=== PATIENT | male | born 1950 | race Caucasian/White ===

== ENCOUNTER 2022-11-20 13:55 | Inpatient (IN) ==
[2022-11-20] MEDS ORDERED: ALBUT/IPRATROP 3MG/0.5MG NEB 3 ML VIAL NEB STA (14:08)
[2022-11-20] MEDS ORDERED: CEFEPIME 2,000 MG/20 ML VIAL IV STA (14:08)
--- NOTE | 2022-11-20 14:15 | Emergency Department Note ---
Impression & Plan Sepsis, Acute cholecystitis, Leukocytosis, Immunocompromised, Diverticulitis, COVID-19, Thrombocytopenia ED Provider Note NAME: RUSSELL LUZ AGE: 72 SEX: M : 1950 ARRIVES VIA: Ambulance INFORMANT: [Patient][ems, nursing] ED PROVIDER(S): [Kirk Murray MD] CHIEF COMPLAINT: Short of breath HISTORY OF PRESENT ILLNESS: The patient is a 72-year-old male with a history of renal transplant. He is on immunosuppressant medication. The patient is here visiting from [place]. [facility]. As per EMS, the patient seemed off today and short of breath. He was described as in respiratory distress when seen by EMS. His O2 saturation was in the low 80s. He was placed on nasal cannula O2 supplementation. Upon arrival in the ER, he feels improved. The patient denies fever or chills, he denies cough. He states he did test positive for COVID recently but he cannot really narrow down an exact time he was tested. Patient cannot say exactly how long he has been feeling short of breath but definitely was worse today. Of note, the patient is a poor historian, the is not currently at the bedside. Majority of the history was obtained from the nursing staff and EMS. PMHx/PSHx: See Below SOCIAL HISTORY: See Below. PHYSICAL EXAM: GENERAL: Patient is in no acute distress. HEENT: No acute trauma, normocephalic atraumatic, mucous membranes moist, no nasal congestion. NECK: No stridor, no adenopathy, no meningismus, trachea is midline. LUNGS: Wheezing bilaterally, diminished breath sounds bilaterally, no obvious respiratory distress. HEART: 3/6 systolic murmur. Regular rate and rhythm. ABDOMEN: Soft, nontender, bowel sounds positive, no peritonitis. EXTREMITIES: No cyanosis or edema, full range of motion of all the joints without pain or difficulty, no signs for acute trauma. NEUROLOGIC: Moves all extremities, poor historian, awake. SKIN: No rash, no jaundice, no diaphoresis. DIFFERENTIAL DIAGNOSIS: Bacteremia or sepsis, pneumonia, viral illness, bronchospasm, CHF, cardiac ischemia, electrolyte imbalance, anemia, among others. EMERGENCY DEPARTMENT COURSE/PROCEDURES: Prior/Outside records reviewed: EMS notes. ECG per my interpretation: Indication was shortness of breath. The ECG shows a ventricular pacemaker with a rate of 102. There is no concerning ST e levation, there are no PVCs. The QTc is 495. No old ECGs available for comparison. Continuous Cardiac Monitoring per my interpretation: An order was placed for continuous cardiac monitoring. The monitor shows a rate of 102 with ventricular pacing. Critical Care Note: I have personally spent 46 minutes of critical care time in the direct management of this patient. This includes bedside care, interpretation of diagnostic studies, and testing, discussion with consultants, patient, and family members, and other required patient management activities. This 46 minutes is in excess of all separately billable procedures. MEDICAL DECISION MAKING: There is a mild leukocytosis, this would be consistent with infection. There is a normal hemoglobin. Platelet count was low at 90. We have no old laboratory values to use for comparison. INR was slightly elevated at 1.2. There was some elevation to the creatinine at 1.95. We have no old creatinine values to use for comparison. Potassium was slightly high at 5.7. Lactic acid level was elevated consistent with potential sepsis. Magnesium is low at 1.5. There were some liver enzyme elevations noted. BNP was elevated consistent with potential fluid overload. Chest film per my review shows some mild lung congestion but no focal pneumonia or pneumothorax. Procalcitonin level was elevated consistent with a bacterial infection. Urinalysis did not show findings of infection. Respiratory bio fire was positive for COVID-19. ECG showed a ventricular pacemaker. There was a slight elevation to the cardiac troponin. This troponin elevation could be secondary to cardiac injury or potentially just mismatch from his illness. Abdominal and pelvis CT shows acute cholecystitis and possible acute diverticulitis. There was some inflammation to the renal transplant. The patient received IV cefepime as empiric antibiotic coverage. He was given IV Tylenol for his fever. He was given a DuoNeb for his wheezing. He received IV magnesium and 1 L of IV saline. I was very cautious not to give too much fluid as I was concerned for fluid overload and CHF. I spoke with the patient about his findings, he is in need of a hospital stay. I did speak with case management as well as the on-call hospitalist. I spoke with the on-call surgeon, Dr. Sheth. The patient appears septic with acute cholecystitis and possibly acute diverticulitis. He is COVID-19 positive and immunocompromised. Admission is warranted. No acute surgical intervention this evening. IV antibiotic therapy and continued resuscitation is first and foremost. DISPOSITION: Patient's presentation and findings warrant a hospital stay. Past Med/Surg History Medical History Cirrhosis Surgical History History of permanent cardiac pacemaker placement Renal transplant recipient Social History Smoking Status: Light tobacco smoker Tobacco Type: Smokeless Tobacco (Dip or Chew) Second Hand Exposure: No; Do You Dip or Chew Tobacco: Yes; Tobacco Cessation Education Requested by Patient: No Hx Alcohol Use: Yes Alcohol type: beer Hx Substance Use: No Preferred Language: Albanian Label Printer Required: No Beliefs That Will Affect Care: None Current Living Situation: Spouse Current Living Situation Comment: Home with in [place] Other Information That Helps Us Care for You: No Feels Safe at Home: Yes Safety Concerns: Feels Safe At This Time Assistive Devices: Glasses Allergies Allergies Allergy/AdvReac Type Severity Reaction Status Date / Time No Known Allergies Allergy Unverified 11/20/22 19:17 Home Meds Home Medications Medication Instructions Recorded Confirmed aspirin 81 mg tablet,delayed 81 mg PO DAILY 11/20/22 11/20/22 release calcitriol 0.25 mcg capsule 0.25 mcg PO DIRECTED 11/20/22 11/20/22 dapagliflozin propanediol 10 mg 10 mg PO DAILY 11/20/22 11/20/22 tablet (Farxiga) losartan 50 mg tablet 50 mg PO DAILY 11/20/22 11/20/22 metoprolol succinate 25 mg 25 mg PO HS 11/20/22 11/20/22 tablet,extended release 24 hr multivitamin 1 tab PO DAILY 11/20/22 11/20/22 mycophenolate mofetil 250 mg 250 mg PO BID 11/20/22 11/20/22 capsule (CellCept) prednisone 5 mg tablet 5 mg PO DAILY 11/20/22 11/20/22 simvastatin 20 mg tablet 20 mg PO DAILY 11/20/22 11/20/22 tacrolimus 1 mg capsule, 1 mg PO BID 11/20/22 11/20/22 immediate-release tamsulosin 0.4 mg capsule 0.4 mg PO DAILY 11/20/22 11/20/22 Results & Data (ED) Vital Signs Vital Signs - 24 hr 11/20/22 14:13 11/20/22 13:43 11/20/22 14:08 Temperature 38.9 C H Temperature Source Oral Pulse Rate 103 H 102 H Pulse Rate from SpO2 Sensor Respiratory Rate 29 H Respiratory Effort / Characteristics Spontaneous Respiratory Depth Normal Respiratory Pattern Regular Blood Pressure 145/78 H Blood Pressure Mean 100 Pulse Oximetry 93 93 Oxygen Delivery Method Room Air Room Air Oxygen Flow Rate 0 Sepsis Recent Fever Within 48 Hours Yes Sepsis New/Unexplained Change in Mental Status N/A Sepsis Action Taken by Nursing Physician Notified 11/20/22 14:04 11/20/22 14:05 11/20/22 14:10 Temperature Temperature Source Pulse Rate 103 H 102 H Pulse Rate from SpO2 Sensor 100 H 104 H Respiratory Rate 39 H 34 H Respiratory Effort / Characteristics Respiratory Depth Respiratory Pattern Blood Pressure 145/78 H Blood Pressure Mean 111 Pulse Oximetry 92 92 Oxygen Delivery Method Room Air Oxygen Flow Rate Sepsis Recent Fever Within 48 Hours Sepsis New/Unexplained Change in Mental Status Sepsis Action Taken by Nursing 11/20/22 14:20 11/20/22 14:30 11/20/22 14:40 Temperature Temperature Source Pulse Rate 100 H 102 H 103 H Pulse Rate from SpO2 Sensor 98 H 99 H 100 H Respiratory Rate 23 37 H 14 Respiratory Effort / Characteristics Respiratory Depth Respiratory Pattern Blood Pressure Blood Pressure Mean Pulse Oximetry 91 99 89 L Oxygen Delivery Method Room Air Oxygen Flow Rate Sepsis Recent Fever Within 48 Hours Sepsis New/Unexplained Change in Mental Status Sepsis Action Taken by Nursing 11/20/22 14:50 11/20/22 15:52 11/20/22 14:59 Temperature 38.6 C H Temperature Source Oral Pulse Rate 103 H 97 H Pulse Rate from SpO2 Sensor 100 H 99 H Respiratory Rate 15 28 H Respiratory Effort / Characteristics Respiratory Depth Respiratory Pattern Blood Pressure Blood Pressure Mean Pulse Oximetry 95 96 Oxygen Delivery Method Nasal Cannula Oxygen Flow Rate 3 Sepsis Recent Fever Within 48 Hours Sepsis New/Unexplained Change in Mental Status Sepsis Action Taken by Nursing 11/20/22 14:59 11/20/22 15:00 11/20/22 15:00 Temperature Temperature Source Pulse Rate 106 H Pulse Rate from SpO2 Sensor 96 H Respiratory Rate 31 H Respiratory Effort / Characteristics Respiratory Depth Respiratory Pattern Blood Pressure 139/68 129/75 Blood Pressure Mean 108 101 Pulse Oximetry 96 Oxygen Delivery Method Oxygen Flow Rate Sepsis Recent Fever Within 48 Hours Sepsis New/Unexplained Change in Mental Status Sepsis Action Taken by Nursing 11/20/22 15:10 11/20/22 15:20 11/20/22 15:30 Temperature Temperature Source Pulse Rate 107 H 107 H Pulse Rate from SpO2 Sensor 107 H Respiratory Rate 38 H 28 H Respiratory Effort / Characteristics Respiratory Depth Respiratory Pattern Blood Pressure 135/72 Blood Pressure Mean 107 Pulse Oximetry 95 Oxygen Delivery Method Oxygen Flow Rate Sepsis Recent Fever Within 48 Hours Sepsis New/Unexplained Change in Mental Status Sepsis Action Taken by Nursing 11/20/22 15:30 11/20/22 15:40 11/20/22 15:45 Temperature Temperature Source Pulse Rate 108 H 106 H 97 H Pulse Rate from SpO2 Sensor 111 H Respiratory Rate 36 H 36 H 34 H Respiratory Effort / Characteristics Respiratory Depth Respiratory Pattern Blood Pressure Blood Pressure Mean Pulse Oximetry 94 Oxygen Delivery Method Oxygen Flow Rate Sepsis Recent Fever Within 48 Hours Sepsis New/Unexplained Change in Mental Status Sepsis Action Taken by Nursing 11/20/22 15:45 11/20/22 15:50 11/20/22 16:00 Temperature Temperature Source Pulse Rate 97 H 94 H Pulse Rate from SpO2 Sensor 103 H 96 H Respiratory Rate 36 H 39 H Respiratory Effort / Characteristics Respiratory Depth Respiratory Pattern Blood Pressure 127/59 L Blood Pressure Mean 71 Pulse Oximetry 96 95 Oxygen Delivery Method Nasal Cannula Oxygen Flow Rate 3 Sepsis Recent Fever Within 48 Hours Sepsis New/Unexplained Change in Mental Status Sepsis Action Taken by Nursing 11/20/22 16:31 11/20/22 16:22 11/20/22 16:30 Temperature 38.1 C H Temperature Source Oral Pulse Rate Pulse Rate from SpO2 Sensor 99 H Respiratory Rate Respiratory Effort / Characteristics Respiratory Depth Respiratory Pattern Blood Pressure 103/64 Blood Pressure Mean 74 Pulse Oximetry 97 Oxygen Delivery Method Oxygen Flow Rate Sepsis Recent Fever Within 48 Hours Sepsis New/Unexplained Change in Mental Status Sepsis Action Taken by Nursing 11/20/22 16:30 11/20/22 16:40 11/20/22 16:45 Temperature Temperature Source Pulse Rate 96 H 95 H Pulse Rate from SpO2 Sensor 100 H 97 H Respiratory Rate 31 H 38 H Respiratory Effort / Characteristics Respiratory Depth Respiratory Pattern Blood Pressure 121/69 Blood Pressure Mean 88 Pulse Oximetry 96 96 Oxygen Delivery Method Oxygen Flow Rate Sepsis Recent Fever Within 48 Hours Sepsis New/Unexplained Change in Mental Status Sepsis Action Taken by Nursing 11/20/22 16:45 11/20/22 16:50 11/20/22 17:00 Temperature Temperature Source Pulse Rate 104 H Pulse Rate from SpO2 Sensor 96 H 99 H Respiratory Rate Respiratory Effort / Characteristics Respiratory Depth Respiratory Pattern Blood Pressure 123/72 Blood Pressure Mean 84 Pulse Oximetry 96 96 Oxygen Delivery Method Oxygen Flow Rate Sepsis Recent Fever Within 48 Hours Sepsis New/Unexplained Change in Mental Status Sepsis Action Taken by Nursing 11/20/22 17:00 11/20/22 17:10 11/20/22 17:20 Temperature Temperature Source Pulse Rate 95 H 100 H 97 H Pulse Rate from SpO2 Sensor 98 H 95 H 101 H Respiratory Rate 18 17 26 H Respiratory Effort / Characteristics Respiratory Depth Respiratory Pattern Blood Pressure Blood Pressure Mean Pulse Oximetry 96 96 96 Oxygen Delivery Method Nasal Cannula Oxygen Flow Rate 3 Sepsis Recent Fever Within 48 Hours Sepsis New/Unexplained Change in Mental Status Sepsis Action Taken by [facility] Medications Current Medication List: was personally reviewed by me Laboratory Data Attestation: I reviewed the patient's lab results. 11/20/22 14:51 11/20/22 14:51 Lab Results 11/20/22 11/20/22 11/20/22 Range/Units 14:09 14:51 14:51 WBC 12.70 H (4.8-10.8) K/ul RBC 5.66 (4.70-6.10) M/uL Hgb 17.5 (14.0-18.0) g/dl Hct 52.1 H (42.0-52.0) % MCV 92.0 (80.0-100.0) fL MCH 30.9 (25.0-34.0) pg MCHC 33.6 (32.0-36.0) g/dL RDW Std Deviation 46.2 (36.4-46.3) fL RDW Coeff of Noelle 13.7 (11.5-14.5) % Plt Count 90 L (130-400) K/uL MPV 10.3 (9.4-12.4) fL Immature Gran % (Auto) 0.9 % Neut % (Auto) 88.5 % Lymph % (Auto) 6.2 % [place] % (Auto) 4.2 % Eos % (Auto) 0.0 % Baso % (Auto) 0.2 % Neut # (Auto) 11.24 H (1.40-6.50) K/uL Lymph # (Auto) 0.79 L (1.2-3.4) K/uL [place] # (Auto) 0.53 (0.11-0.59) K/uL Eos # (Auto) 0.00 (0-0.50) K/uL Baso # (Auto) 0.03 (0-0.2) K/uL Immature Gran # (Auto) 0.11 (0.01-0.20) K/uL Platelet Estimate Decreased L (Normal) PT (9.0-12.0) Seconds INR (0.9-1.1) APTT (21.0-31.0) Seconds PTT Ratio Sodium 137 (136-145) mmol/L Potassium 5.7 H (3.5-5.1) mmol/L Chloride 108 H (98-107) mmol/L Carbon Dioxide 21 (21-32) mmol/L Anion Gap 8 (3-11) BUN 37 H (6-23) mg/dl Creatinine 1.95 H (0.6-1.4) mg/dl Est Cr Clr Drug Dosing 41.0 ml/min Est GFR ( Amer) 38.7 ml/min Est GFR (Non-Af Amer) 33.4 ml/min BUN/Creatinine Ratio 19.0 (10-20) Glucose 108 H (70-99(Fasting)) mg/dl Lactate (0.4-2.0) mmol/L Calcium 10.0 (8.6-10.3) mg/dl Magnesium 1.5 L (1.7-2.4) mg/dl Total Bilirubin 2.1 H (0.2-1.0) mg/dl Direct Bilirubin 1.0 H (0-0.2) mg/dl AST 59 H (13-39) U/L ALT 95 H (7-52) U/L Alkaline Phosphatase 81 (34-104) U/L Troponin I High Sens 76.3 H* (0-20) pg/ml B-Natriuretic Peptide (0-100) pg/ml Total Protein 7.3 (6.0-8.3) gm/dl Albumin 4.2 (3.4-5.0) gm/dl Procalcitonin (0-0.5) ng/ml Urine Color Urine Appearance (Clear) Urine pH (4.5-7.5) Ur Specific [place] (1.000-1.030) Urine Protein (Negative) Urine Glucose (UA) (Negative) Urine Ketones (Negative) Urine Blood (Negative) Urine Nitrite (Negative) Urine Bilirubin (Negative) Urine Urobilinogen (Negative) Ur Leukocyte Esterase (Negative) Urine WBC (Auto) (0-5) /hpf Urine RBC (Auto) (0-4) /hpf U Hyaline Cast (Auto) (0-5) /lpf U Epithel Cells (Auto) (0-5) /lpf Urine Bacteria (Auto) (Negative) Urine Yeast Nasal Screen MRSA (PCR) (Negative) Adenovirus (PCR) Not Detected (NotDetected) Anaplasma Smear B. pertussis DNA (PCR) Not Detected (NotDetected) B.parapertussis DNA PCR Not Detected (NotDetected) Lyme Disease IgG Ab (Negative) Lyme Disease IgM Ab (Negative) C. pneumoniae DNA (PCR) Not Detected (NotDetected) Coronavirus OC43 (PCR) Not Detected (NotDetected) Coronavirus HKU1 (PCR) Not Detected (NotDetected) Coronavirus 229E (PCR) Not Detected (NotDetected) SARS-CoV-2 (PCR) DETECTED A* (NotDetected) Coronavirus NL63 (PCR) Not Detected (NotDetected) Monoscreen (Negative) Human Metapneumovir PCR Not Detected (NotDetected) Influenza Type A (PCR) Not Detected (NotDetected) Influenza Type B (PCR) Not Detected (NotDetected) M. pneumoniae (PCR) Not Detected (NotDetected) Parainfluenza 1 (PCR) Not Detected (NotDetected) Parainfluenza 2 (PCR) Not Detected (NotDetected) Parainfluenza 3 (PCR) Not Detected (NotDetected) Parainfluenza 4 (PCR) Not Detected (NotDetected) RSV (PCR) Not Detected (NotDetected) Entero/Rhino (PCR) Not Detected (NotDetected) 11/20/22 11/20/22 11/20/22 Range/Units 14:51 14:51 14:51 WBC (4.8-10.8) K/ul RBC (4.70-6.10) M/uL Hgb (14.0-18.0) g/dl Hct (42.0-52.0) % MCV (80.0-100.0) fL MCH (25.0-34.0) pg MCHC (32.0-36.0) g/dL RDW Std Deviation (36.4-46.3) fL RDW Coeff of Noelle (11.5-14.5) % Plt Count (130-400) K/uL MPV (9.4-12.4) fL Immature Gran % (Auto) % Neut % (Auto) % Lymph % (Auto) % [place] % (Auto) % Eos % (Auto) % Baso % (Auto) % Neut # (Auto) (1.40-6.50) K/uL Lymph # (Auto) (1.2-3.4) K/uL [place] # (Auto) (0.11-0.59) K/uL Eos # (Auto) (0-0.50) K/uL Baso # (Auto) (0-0.2) K/uL Immature Gran # (Auto) (0.01-0.20) K/uL Platelet Estimate (Normal) PT (9.0-12.0) Seconds INR (0.9-1.1) APTT (21.0-31.0) Seconds PTT Ratio Sodium (136-145) mmol/L Potassium (3.5-5.1) mmol/L Chloride (98-107) mmol/L Carbon Dioxide (21-32) mmol/L Anion Gap (3-11) BUN (6-23) mg/dl Creatinine (0.6-1.4) mg/dl Est Cr Clr Drug Dosing ml/min Est GFR ( Amer) ml/min Est GFR (Non-Af Amer) ml/min BUN/Creatinine Ratio (10-20) Glucose (70-99(Fasting)) mg/dl Lactate 2.1 H* (0.4-2.0) mmol/L Calcium (8.6-10.3) mg/dl Magnesium (1.7-2.4) mg/dl Total Bilirubin (0.2-1.0) mg/dl Direct Bilirubin (0-0.2) mg/dl AST (13-39) U/L ALT (7-52) U/L Alkaline Phosphatase (34-104) U/L Troponin I High Sens (0-20) pg/ml B-Natriuretic Peptide 508 H (0-100) pg/ml Total Protein (6.0-8.3) gm/dl Albumin (3.4-5.0) gm/dl Procalcitonin 14.34 H (0-0.5) ng/ml Urine Color Urine Appearance (Clear) Urine pH (4.5-7.5) Ur Specific [place] (1.000-1.030) Urine Protein (Negative) Urine Glucose (UA) (Negative) Urine Ketones (Negative) Urine Blood (Negative) Urine Nitrite (Negative) Urine Bilirubin (Negative) Urine Urobilinogen (Negative) Ur Leukocyte Esterase (Negative) Urine WBC (Auto) (0-5) /hpf Urine RBC (Auto) (0-4) /hpf U Hyaline Cast (Auto) (0-5) /lpf U Epithel Cells (Auto) (0-5) /lpf Urine Bacteria (Auto) (Negative) Urine Yeast Nasal Screen MRSA (PCR) (Negative) Adenovirus (PCR) (NotDetected) Anaplasma Smear B. pertussis DNA (PCR) (NotDetected) B.parapertussis DNA PCR (NotDetected) Lyme Disease IgG Ab (Negative) Lyme Disease IgM Ab (Negative) C. pneumoniae DNA (PCR) (NotDetected) Coronavirus OC43 (PCR) (NotDetected) Coronavirus HKU1 (PCR) (NotDetected) Coronavirus 229E (PCR) (NotDetected) SARS-CoV-2 (PCR) (NotDetected) Coronavirus NL63 (PCR) (NotDetected) Monoscreen (Negative) Human Metapneumovir PCR (NotDetected) Influenza Type A (PCR) (NotDetected) Influenza Type B (PCR) (NotDetected) M. pneumoniae (PCR) (NotDetected) Parainfluenza 1 (PCR) (NotDetected) Parainfluenza 2 (PCR) (NotDetected) Parainfluenza 3 (PCR) (NotDetected) Parainfluenza 4 (PCR) (NotDetected) RSV (PCR) (NotDetected) Entero/Rhino (PCR) (NotDetected) 11/20/22 11/20/22 11/20/22 Range/Units 14:51 16:09 17:05 WBC (4.8-10.8) K/ul RBC (4.70-6.10) M/uL Hgb (14.0-18.0) g/dl Hct (42.0-52.0) % MCV (80.0-100.0) fL MCH (25.0-34.0) pg MCHC (32.0-36.0) g/dL RDW Std Deviation (36.4-46.3) fL RDW Coeff of Noelle (11.5-14.5) % Plt Count (130-400) K/uL MPV (9.4-12.4) fL Immature Gran % (Auto) % Neut % (Auto) % Lymph % (Auto) % [place] % (Auto) % Eos % (Auto) % Baso % (Auto) % Neut # (Auto) (1.40-6.50) K/uL Lymph # (Auto) (1.2-3.4) K/uL [place] # (Auto) (0.11-0.59) K/uL Eos # (Auto) (0-0.50) K/uL Baso # (Auto) (0-0.2) K/uL Immature Gran # (Auto) (0.01-0.20) K/uL Platelet Estimate (Normal) PT 12.8 H (9.0-12.0) Seconds INR 1.2 H (0.9-1.1) APTT 32.2 H (21.0-31.0) Seconds PTT Ratio 1.1 Sodium (136-145) mmol/L Potassium (3.5-5.1) mmol/L Chloride (98-107) mmol/L Carbon Dioxide (21-32) mmol/L Anion Gap (3-11) BUN (6-23) mg/dl Creatinine (0.6-1.4) mg/dl Est Cr Clr Drug Dosing ml/min Est GFR ( Amer) ml/min Est GFR (Non-Af Amer) ml/min BUN/Creatinine Ratio (10-20) Glucose (70-99(Fasting)) mg/dl Lactate (0.4-2.0) mmol/L Calcium (8.6-10.3) mg/dl Magnesium (1.7-2.4) mg/dl Total Bilirubin (0.2-1.0) mg/dl Direct Bilirubin (0-0.2) mg/dl AST (13-39) U/L ALT (7-52) U/L Alkaline Phosphatase (34-104) U/L Troponin I High Sens (0-20) pg/ml B-Natriuretic Peptide (0-100) pg/ml Total Protein (6.0-8.3) gm/dl Albumin (3.4-5.0) gm/dl Procalcitonin (0-0.5) ng/ml Urine Color [place] Urine Appearance Clear (Clear) Urine pH 5.0 (4.5-7.5) Ur Specific [place] 1.028 (1.000-1.030) Urine Protein 3+ H (Negative) Urine Glucose (UA) 3+ H (Negative) Urine Ketones Trace H (Negative) Urine Blood 1+ H (Negative) Urine Nitrite Positive A (Negative) Urine Bilirubin 1+ H (Negative) Urine Urobilinogen Negative (Negative) Ur Leukocyte Esterase Negative (Negative) Urine WBC (Auto) 1-5 (0-5) /hpf Urine RBC (Auto) 0-4 (0-4) /hpf U Hyaline Cast (Auto) 1-5 (0-5) /lpf U Epithel Cells (Auto) 10-20 H (0-5) /lpf Urine Bacteria (Auto) Negative (Negative) Urine Yeast Not Reportable Nasal Screen MRSA (PCR) Negative (Negative) Adenovirus (PCR) (NotDetected) Anaplasma Smear B. pertussis DNA (PCR) (NotDetected) B.parapertussis DNA PCR (NotDetected) Lyme Disease IgG Ab (Negative) Lyme Disease IgM Ab (Negative) C. pneumoniae DNA (PCR) (NotDetected) Coronavirus OC43 (PCR) (NotDetected) Coronavirus HKU1 (PCR) (NotDetected) Coronavirus 229E (PCR) (NotDetected) SARS-CoV-2 (PCR) (NotDetected) Coronavirus NL63 (PCR) (NotDetected) Monoscreen (Negative) Human Metapneumovir PCR (NotDetected) Influenza Type A (PCR) (NotDetected) Influenza Type B (PCR) (NotDetected) M. pneumoniae (PCR) (NotDetected) Parainfluenza 1 (PCR) (NotDetected) Parainfluenza 2 (PCR) (NotDetected) Parainfluenza 3 (PCR) (NotDetected) Parainfluenza 4 (PCR) (NotDetected) RSV (PCR) (NotDetected) Entero/Rhino (PCR) (NotDetected) 11/20/22 11/20/22 11/20/22 Range/Units 17:10 17:10 17:10 WBC (4.8-10.8) K/ul RBC (4.70-6.10) M/uL Hgb (14.0-18.0) g/dl Hct (42.0-52.0) % MCV (80.0-100.0) fL MCH (25.0-34.0) pg MCHC (32.0-36.0) g/dL RDW Std Deviation (36.4-46.3) fL RDW Coeff of Noelle (11.5-14.5) % Plt Count (130-400) K/uL MPV (9.4-12.4) fL Immature Gran % (Auto) % Neut % (Auto) % Lymph % (Auto) % [place] % (Auto) % Eos % (Auto) % Baso % (Auto) % Neut # (Auto) (1.40-6.50) K/uL Lymph # (Auto) (1.2-3.4) K/uL [place] # (Auto) (0.11-0.59) K/uL Eos # (Auto) (0-0.50) K/uL Baso # (Auto) (0-0.2) K/uL Immature Gran # (Auto) (0.01-0.20) K/uL Platelet Estimate (Normal) PT (9.0-12.0) Seconds INR (0.9-1.1) APTT (21.0-31.0) Seconds PTT Ratio Sodium (136-145) mmol/L Potassium (3.5-5.1) mmol/L Chloride (98-107) mmol/L Carbon Dioxide (21-32) mmol/L Anion Gap (3-11) BUN (6-23) mg/dl Creatinine (0.6-1.4) mg/dl Est Cr Clr Drug Dosing ml/min Est GFR ( Amer) ml/min Est GFR (Non-Af Amer) ml/min BUN/Creatinine Ratio (10-20) Glucose (70-99(Fasting)) mg/dl Lactate 1.9 (0.4-2.0) mmol/L Calcium (8.6-10.3) mg/dl Magnesium (1.7-2.4) mg/dl Total Bilirubin (0.2-1.0) mg/dl Direct Bilirubin (0-0.2) mg/dl AST (13-39) U/L ALT (7-52) U/L Alkaline Phosphatase (34-104) U/L Troponin I High Sens 80.8 H* (0-20) pg/ml B-Natriuretic Peptide (0-100) pg/ml Total Protein (6.0-8.3) gm/dl Albumin (3.4-5.0) gm/dl Procalcitonin (0-0.5) ng/ml Urine Color Urine Appearance (Clear) Urine pH (4.5-7.5) Ur Specific [place] (1.000-1.030) Urine Protein (Negative) Urine Glucose (UA) (Negative) Urine Ketones (Negative) Urine Blood (Negative) Urine Nitrite (Negative) Urine Bilirubin (Negative) Urine Urobilinogen (Negative) Ur Leukocyte Esterase (Negative) Urine WBC (Auto) (0-5) /hpf Urine RBC (Auto) (0-4) /hpf U Hyaline Cast (Auto) (0-5) /lpf U Epithel Cells (Auto) (0-5) /lpf Urine Bacteria (Auto) (Negative) Urine Yeast Nasal Screen MRSA (PCR) (Negative) Adenovirus (PCR) (NotDetected) Anaplasma Smear See Comment B. pertussis DNA (PCR) (NotDetected) B.parapertussis DNA PCR (NotDetected) Lyme Disease IgG Ab (Negative) Lyme Disease IgM Ab (Negative) C. pneumoniae DNA (PCR) (NotDetected) Coronavirus OC43 (PCR) (NotDetected) Coronavirus HKU1 (PCR) (NotDetected) Coronavirus 229E (PCR) (NotDetected) SARS-CoV-2 (PCR) (NotDetected) Coronavirus NL63 (PCR) (NotDetected) Monoscreen (Negative) Human Metapneumovir PCR (NotDetected) Influenza Type A (PCR) (NotDetected) Influenza Type B (PCR) (NotDetected) M. pneumoniae (PCR) (NotDetected) Parainfluenza 1 (PCR) (NotDetected) Parainfluenza 2 (PCR) (NotDetected) Parainfluenza 3 (PCR) (NotDetected) Parainfluenza 4 (PCR) (NotDetected) RSV (PCR) (NotDetected) Entero/Rhino (PCR) (NotDetected) 11/20/22 11/20/22 Range/Units 17:10 17:10 WBC (4.8-10.8) K/ul RBC (4.70-6.10) M/uL Hgb (14.0-18.0) g/dl Hct (42.0-52.0) % MCV (80.0-100.0) fL MCH (25.0-34.0) pg MCHC (32.0-36.0) g/dL RDW Std Deviation (36.4-46.3) fL RDW Coeff of Noelle (11.5-14.5) % Plt Count (130-400) K/uL MPV (9.4-12.4) fL Immature Gran % (Auto) % Neut % (Auto) % Lymph % (Auto) % [place] % (Auto) % Eos % (Auto) % Baso % (Auto) % Neut # (Auto) (1.40-6.50) K/uL Lymph # (Auto) (1.2-3.4) K/uL [place] # (Auto) (0.11-0.59) K/uL Eos # (Auto) (0-0.50) K/uL Baso # (Auto) (0-0.2) K/uL Immature Gran # (Auto) (0.01-0.20) K/uL Platelet Estimate (Normal) PT (9.0-12.0) Seconds INR (0.9-1.1) APTT (21.0-31.0) Seconds PTT Ratio Sodium (136-145) mmol/L Potassium (3.5-5.1) mmol/L Chloride (98-107) mmol/L Carbon Dioxide (21-32) mmol/L Anion Gap (3-11) BUN (6-23) mg/dl Creatinine (0.6-1.4) mg/dl Est Cr Clr Drug Dosing ml/min Est GFR ( Amer) ml/min Est GFR (Non-Af Amer) ml/min BUN/Creatinine Ratio (10-20) Glucose (70-99(Fasting)) mg/dl Lactate (0.4-2.0) mmol/L Calcium (8.6-10.3) mg/dl Magnesium (1.7-2.4) mg/dl Total Bilirubin (0.2-1.0) mg/dl Direct Bilirubin (0-0.2) mg/dl AST (13-39) U/L ALT (7-52) U/L Alkaline Phosphatase (34-104) U/L Troponin I High Sens (0-20) pg/ml B-Natriuretic Peptide (0-100) pg/ml Total Protein (6.0-8.3) gm/dl Albumin (3.4-5.0) gm/dl Procalcitonin (0-0.5) ng/ml Urine Color Urine Appearance (Clear) Urine pH (4.5-7.5) Ur Specific [place] (1.000-1.030) Urine Protein (Negative) Urine Glucose (UA) (Negative) Urine Ketones (Negative) Urine Blood (Negative) Urine Nitrite (Negative) Urine Bilirubin (Negative) Urine Urobilinogen (Negative) Ur Leukocyte Esterase (Negative) Urine WBC (Auto) (0-5) /hpf Urine RBC (Auto) (0-4) /hpf U Hyaline Cast (Auto) (0-5) /lpf U Epithel Cells (Auto) (0-5) /lpf Urine Bacteria (Auto) (Negative) Urine Yeast Nasal Screen MRSA (PCR) (Negative) Adenovirus (PCR) (NotDetected) Anaplasma Smear B. pertussis DNA (PCR) (NotDetected) B.parapertussis DNA PCR (NotDetected) Lyme Disease IgG Ab Negative (Negative) Lyme Disease IgM Ab Negative (Negative) C. pneumoniae DNA (PCR) (NotDetected) Coronavirus OC43 (PCR) (NotDetected) Coronavirus HKU1 (PCR) (NotDetected) Coronavirus 229E (PCR) (NotDetected) SARS-CoV-2 (PCR) (NotDetected) Coronavirus NL63 (PCR) (NotDetected) Monoscreen Negative (Negative) Human Metapneumovir PCR (NotDetected) Influenza Type A (PCR) (NotDetected) Influenza Type B (PCR) (NotDetected) M. pneumoniae (PCR) (NotDetected) Parainfluenza 1 (PCR) (NotDetected) Parainfluenza 2 (PCR) (NotDetected) Parainfluenza 3 (PCR) (NotDetected) Parainfluenza 4 (PCR) (NotDetected) RSV (PCR) (NotDetected) Entero/Rhino (PCR) (NotDetected) Administered Medications Vancomycin HCl 2,000 mg/ (Sodium Chloride) 540 mls @ 200 mls/hr IV NOW ONE Stop: 11/20/22 22:11 Last Admin: 11/20/22 20:35 Dose: 200 mls/hr Documented By: WINSTON Magnesium Oxide (Magnesium Oxide 400 Mg Tab) 400 mg PO QAM ABDULKADIR Stop: 12/20/22 19:29 Last Admin: 11/20/22 20:35 Dose: 400 mg Documented By: GH Metoprolol Succinate (Metoprolol Succ 25mg Ext Rel Tab) 25 mg PO HS [facility] Stop: 12/20/22 20:59 Last Admin: 11/20/22 20:35 Dose: 25 mg Documented By: GH Mycophenolate Mofetil (Mycophenolate Mofetil 250 Mg Cap) 250 mg PO BID ABDULKADIR Stop: 12/20/22 20:59 Last Admin: 11/20/22 20:35 Dose: 250 mg Documented By: GH Tacrolimus (Tacrolimus 1 Mg Cap) 1 mg PO BID ABDULKADIR Stop: 12/20/22 20:59 Last Admin: 11/20/22 20:35 Dose: 1 mg Documented By: GH Discontinued Medications Albuterol (Albut/Ipratrop 3mg/0.5mg Neb 3 Ml Vial) 3 ml NEB NOW STA; Protocol Stop: 11/20/22 14:09 Last Admin: 11/20/22 14:22 Dose: 3 ml Documented By: ROXIE Cefepime HCl (Maxipime) 2,000 mg in 20 mls @ 5 mls/min IV NOW STA; Protocol Stop: 11/20/22 14:11 Last Admin: 11/20/22 15:20 Dose: 5 mls/min Documented By: ROXIE Acetaminophen (Ofirmev) 1,000 mg in 100 mls @ 400 mls/hr IV NOW STA Stop: 11/20/22 15:00 Last Infusion: 11/20/22 15:50 Dose: 0 mls/hr Documented By: Admin: 11/20/22 14:57 Dose: 400 mls/hr Documented By: ROXIE Sodium Chloride (Nss 1000ml) 1,000 mls @ 999 mls/hr IV .Q1H1M ONE Stop: 11/20/22 15:46 Last Infusion: 11/20/22 16:16 Dose: 0 mls/hr Documented By: Admin: 11/20/22 14:58 Dose: 999 mls/hr Documented By: ROXIE Magnesium Sulfate/Dextrose (Magnesium Sulfate / D5w) 1 gm in 100 mls @ 100 mls/hr IV NOW STA Stop: 11/20/22 16:24 Last Infusion: 11/20/22 17:20 Dose: 0 mls/hr Documented By: Admin: 11/20/22 15:49 Dose: 100 mls/hr Documented By: ROXIE Imaging Data Radiologist's Impression: Chest X-Ray 11/20/22 14:08 XR chest 1V portable HISTORY: Sepsis COMPARISON: None. FINDINGS: No pneumothorax. No pleural effusions. The cardiac silhouette is mildly enlarged. There is mild central pulmonary vascular congestion without overt edema. No new focal lung consolidations to suggest pneumonia. Small linear scarlike density seen within the left midlung zone. The left-sided dual-chamber pacemaker. IMPRESSION: Cardiomegaly and mild central pulmonary vascular congestion without overt edema. ACT 112: Negative or not required by law. Electronically signed by: Josh Maloney M.D. 11/20/2022 2:58 PM Abdomen/Pelvis CT 11/20/22 15:[address] WITHOUT CONTRAST CT DOSE: 1501.13 mGy.cm HISTORY: fever, sepsis, renal transplant TECHNIQUE: Multiaxial CT images of the abdomen and pelvis were performed without contrast. A dose lowering technique was utilized adhering to the principles of ALARA. COMPARISON STUDY: None. FINDINGS: Mild dependent changes seen at the lung bases. No pneumoperitoneum. No pneumatosis. No suspicious lytic are blastic osseous lesions. Pacemaker wires and aortic valve prosthesis are noted. There is a single mildly enlarged anterior diaphragmatic/pericardial lymph node measuring 19 x 12 mm. The right lower quadrant abdominal wall hernia containing multiple loops of small bowel in the cecum. No evidence for a bowel obstruction. Small fat-containing left inguinal hernia. Multiple small and large bowel diverticula are noted. There is minimal fat stranding adjacent to the proximal sigmoid colon with mild focal bowel wall thickening. This likely represents a mild acute diverticulitis. Normal appendix. There are few punctate calcified granulomas within the right hepatic lobe. Nodular contour to the liver consistent with cirrhosis. The spleen is enlarged measuring 15 cm in length. The adrenal glands and pancreas are unremarkable. There is thickening of the gallbladder wall with multiple punctate gallstones and mild pericholecystic inflammatory change/fluid. This is concerning for an acute cholecystitis. There are atrophic bilateral [place] kidneys containing multiple hypodense lesions. These are incompletely belle racterized on this noncontrast study but favor cysts. Dominant right renal lesion measures 6.4 cm. Advanced calcified plaque within the aorta and iliac arteries. No significant bladder wall thickening. The right lower quadrant renal transplant with mild perinephric fat stranding. There is a single punctate stone within the right lower quadrant renal transplant. No hydronephrosis. Mild periportal lymphadenopathy. This could be due to the cirrhosis or suspected acute cholecystitis. IMPRESSION: 1. Gallbladder wall thickening with pericholecystic inflammatory change/fluid and a few small gallstones. This is concerning for acute cholecystitis. Surgical consultation recommended. 2. Mild acute sigmoid diverticulitis. No perforation or abscess. 3. Mild perinephric edema surrounding the right lower quadrant renal transplant. A mild pyelonephritis would be the diagnosis of exclusion. Recommend correlation with urinalysis. 4. A single punctate stone within the right lower quadrant renal transplant. No hydronephrosis or ureteral stones. 5. Cirrhotic liver with splenomegaly. 6. Additional findings as described above. ACT 112: Negative or not required by law. Electronically signed by: Josh Maloney M.D. 11/20/2022 4:33 PM Discharge Plan Visit Data Chief Complaint: Illness ED Provider: Kirk Murray Discharge Problem: Sepsis, Acute cholecystitis, Leukocytosis, Immunocompromised, Diverticulitis, COVID-19, Thrombocytopenia Patient Disposition: Admitted As Inpatient Condition: Serious Discharge Instructions Interventions: ED Discharge Assessment Last Done: 11/20/22 18:15
[2022-11-20] MEDS ORDERED: ACETAMINOPHEN 1,000 MG/100 ML VIAL IV STA (14:46)
[2022-11-20] MEDS ORDERED: SODIUM CHLORIDE 0.9% 1000ML 1,000 ML IV ONE (14:46)
--- NOTE | 2022-11-20 14:59 | XRay Report ---
XR chest 1V portable HISTORY: Sepsis COMPARISON: None. FINDINGS: No pneumothorax. No pleural effusions. The cardiac silhouette is mildly enlarged. There is mild central pulmonary vascular congestion without overt edema. No new focal lung consolidations to s uggest pneumonia. Small linear scarlike density seen within the left midlung zone. The left-sided martinez l-chamber pacemaker. IMPRESSION: Cardiomegaly and mild central pulmonary vascular congestion without overt edema. ACT 112: Negative or not required by law. Electronically signed by: Josh Maloney M.D. 11/20/2022 2:58 PM
[2022-11-20 15:19] LABS: Albumin Level 4.2 gm/dl (3.4-5.0); Bilirubin,Total 2.1 mg/dl (0.2-1.0); Magnesium 1.5 mg/dl (1.7-2.4); Potassium 5.7 mmol/L (3.5-5.1)
[2022-11-20 15:22] LABS: INR 1.2 (0.9-1.1); Partial Thromboplastin Ratio 1.1; Partial Thromboplastin Time 32.2 Seconds (21.0-31.0); Prothrombin Time 12.8 Seconds (9.0-12.0)
[2022-11-20 15:25] LABS: Est GFR (African American) 38.7 ml/min; Est GFR (Non-African American) 33.4 ml/min; Total Protein 7.3 gm/dl (6.0-8.3)
[2022-11-20] MEDS ORDERED: MAGNESIUM SULFATE / D5W 1 GM/100 ML BAG IV STA (15:25)
[2022-11-20 15:34] LABS: Troponin I High Sensitivity 76.3 pg/ml (0-20)
[2022-11-20 15:36] LABS: Bordetella parapertussis PCR Not Detected (NotDetected); Bordetella pertussis PCR Not Detected (NotDetected); Chlamydia pneumoniae PCR Not Detected (NotDetected); Coronavirus 229E PCR Not Detected (NotDetected); Coronavirus CoV-2 (COVID19)PCR DETECTED (NotDetected); Coronavirus HKU1 PCR Not Detected (NotDetected); Coronavirus NL63 PCR Not Detected (NotDetected); Coronavirus OC43PCR Not Detected (NotDetected); Human Metapneumovirus PCR Not Detected (NotDetected); Influenza A PCR Not Detected (NotDetected); Influenza B PCR Not Detected (NotDetected); Mycoplasma pneumoniae PCR Not Detected (NotDetected); Parainfluenza Virus 1 PCR Not Detected (NotDetected); Parainfluenza Virus 2 PCR Not Detected (NotDetected); Parainfluenza Virus 3 PCR Not Detected (NotDetected); Parainfluenza Virus 4 PCR Not Detected (NotDetected); Respiratory Syncytial VirusPCR Not Detected (NotDetected); Rhinovirus/Enterovirus PCR Not Detected (NotDetected)
[2022-11-20 15:40] LABS: Basophils # (auto) 0.03 K/uL (0-0.2); Basophils % (auto) 0.2 %; Hematocrit (blood only) 52.1 % (42.0-52.0); Hemoglobin 17.5 g/dl (14.0-18.0); Immature Granulocytes # (auto) 0.11 K/uL (0.01-0.20); Immature Granulocytes % (auto) 0.9 %; Lymphocytes # (auto) 0.79 K/uL (1.2-3.4); Lymphocytes % (auto) 6.2 %; Mean Corpuscular Hemoglobin 30.9 pg (25.0-34.0); Mean Corpuscular Hgb Conc 33.6 g/dL (32.0-36.0); Mean Platelet Volume 10.3 fL (9.4-12.4); Monocytes # (auto) 0.53 K/uL (0.11-0.59); Monocytes % (auto) 4.2 %; Neutrophils # (auto) 11.24 K/uL (1.40-6.50); Neutrophils % (auto) 88.5 %; Platelet Count 90 K/uL (130-400); Platelet Estimate Decreased (Normal); RDW Coefficient of Variation 13.7 % (11.5-14.5); RDW Standard Deviation 46.2 fL (36.4-46.3); Red Blood Count 5.66 M/uL (4.70-6.10)
[2022-11-20 15:48] LABS: Adenovirus PCR Not Detected (NotDetected)
[2022-11-20 16:30] LABS: Appearance Urine Clear (Clear); Bacteria Urine Automated Negative (Negative); Blood Urine 1+ (Negative); Color Urine Orange; Glucose Urine UA 3+ (Negative); Ketones Urine Trace (Negative); Leukocyte Esterase Urine Negative (Negative); Nitrite Urine Positive (Negative); Protein Urine 3+ (Negative); RBC Urine Automated 0-4 /hpf (0-4); Specific Gravity Urine 1.028 (1.000-1.030); Urobilinogen Urine Negative (Negative)
--- NOTE | 2022-11-20 16:35 | CT Scan Report ---
ABDOMEN AND PELVIS CT WITHOUT CONTRAST CT DOSE: 1501.13 mGy.cm HISTORY: fever, sepsis, renal transplant TECHNIQUE: Multiaxial CT images of the abdomen and pelvis were performed without contrast. A dose lo wering technique was utilized adhering to the principles of ALARA. COMPARISON STUDY: None. FINDINGS: Mild dependent changes seen at the lung bases. No pneumoperitoneum. No pneumatosis. No susp icious lytic are blastic osseous lesions. Pacemaker wires and aortic valve prosthesis are noted. Ther e is a single mildly enlarged anterior diaphragmatic/pericardial lymph node measuring 19 x 12 mm. The right lower quadrant abdominal wall hernia containing multiple loops of small bowel in the cecum. No evidence for a bowel obstruction. Small fat-containing left inguinal hernia. Multiple small and larg e bowel diverticula are noted. There is minimal fat stranding adjacent to the proximal sigmoid colon with mild focal bowel wall thickening. This likely represents a mild acute diverticulitis. Normal divina endix. There are few punctate calcified granulomas within the right hepatic lobe. Nodular contour to the liver consistent with cirrhosis. The spleen is enlarged measuring 15 cm in length. The adrenal gl ands and pancreas are unremarkable. There is thickening of the gallbladder wall with multiple punctat e gallstones and mild pericholecystic inflammatory change/fluid. This is concerning for an acute chol ecystitis. There are atrophic bilateral [place] kidneys containing multiple hypodense lesions. These a re incompletely characterized on this noncontrast study but favor cysts. Dominant right renal lesion measures 6.4 cm. Advanced calcified plaque within the aorta and iliac arteries. No significant bladde r wall thickening. The right lower quadrant renal transplant with mild perinephric fat stranding. The re is a single punctate stone within the right lower quadrant renal transplant. No hydronephrosis. Mi ld periportal lymphadenopathy. This could be due to the cirrhosis or suspected acute cholecystitis. IMPRESSION: 1. Gallbladder wall thickening with pericholecystic inflammatory change/fluid and a few small gallsto josefina. This is concerning for acute cholecystitis. Surgical consultation recommended. 2. Mild acute sigmoid diverticulitis. No perforation or abscess. 3. Mild perinephric edema surrounding the right lower quadrant renal transplant. A mild pyelonephriti s would be the diagnosis of exclusion. Recommend correlation with urinalysis. 4. A single punctate stone within the right lower quadrant renal transplant. No hydronephrosis or ure teral stones. 5. Cirrhotic liver with splenomegaly. 6. Additional findings as described above. ACT 112: Negative or not required by law. Electronically signed by: Josh Maloney M.D. 11/20/2022 4:33 PM
[2022-11-20 16:40] LABS: Bilirubin Urine 1+ (Negative)
--- NOTE | 2022-11-20 17:01 | History & Physical Report ---
Date of Service November 20, 2022 Assessment & Plan (1) Sepsis: Plan: Summary: Sharif is a 72-year-old male who is a very poor historian of his medications and history limiting HPI. He is from out of state (from [place]) and seasonally stays in [place] during the summer months due to the heat in [place]. Has been staying at the [facility]. is not available in person or by phone at time of of admitting exam, reportedly coming in to help give collateral at some point. Daniel Germanisabel [phone] is patient's primary care physician from [place]. Additionally has had [facility] sent by Jakclyn Ortega and Mauri Toledo. Multiple calls made to providers office between [phone], unfortunately have not been able to reach any answering service or provider for medication and medical history reconciliation. Recommend retrying record request at opening 9 AM, of note phone initially gave in answering prompt around 450 but on subsequent calls after 5:00 disconnects with no voice prompt. He is immunosuppressed and has received a renal transplant for unclear reasons, is on prednisone/mycophenolate/tacrolimus, and has had several days of fever/chills/night sweats with unclear source. Reports he had COVID 3 weeks ago but the symptoms have improved and he has not had a cough or shortness of breath recently. Does endorse slight right upper quadrant tenderness, no worsening with food and no samir colored stools. No GI bleeding. Reports he has a little bit of left lower quadrant abdominal tenderness as well but it is "barely noticeable ". Given immunosuppression, unclear source of infection, and septic presentation will cover broadly with broad work-up while continue to obtain collateral as noted below. Sepsis Lactate 2.1, repeat ordered at time of consultation 30 cc/kg bolus deferred due to borderline lactate, and concern for underlying CHF with multiple comorbidities and cardiomegaly noted on CXR with vascular congestion Unclear source. CTA/P with gallbladder wall thickening and pericholecystic fluid suspicious for acute cholecystitis. Patient does not have abdominal pain on clinical exam. Patient has perinephric edema surrounding right lower quadrant renal transplant, mild pyelonephritis is within differential. UA is pending No urinary symptoms/dysuria Procalcitonin 14.34. No pulmonary symptoms UA with protein, ketones, 1+ blood, nitrites. No leukocyte esterase, no bacteria Blood cultures pending Continue cefepime, vancomycin Lyme, anaplasmosis labs pending given patient has been camping and [place] ? ABDIRASHID, history of renal transplant Baseline creatinine unknown Creatinine 1.95 Patient is a renal transplant patient on tacrolimus and mycophenolate Tacrolimus levels pending. Reportedly on prednisone 5 mg daily and tacrolimus 1 mg p.o. twice daily. Mycophenolate to 50 mg p.o. twice daily Magnesium levels 1.5, repleted Bicarb levels 21 BUN/creatinine ratio 19, BUN 37 Cautious use of fluids due to hypoxia, suspicion for underlying CHF, and pulmonary vascular congestion. Bolus as needed Liver cirrhosis, Patient reports this is "genetic runs in the family ". Denies history of hepatitis or heavy alcohol use With associated splenomegaly Direct bili 1.0, AST 59, ALT 95. No baseline available. Evidence of acute cholecystitis and cholelithiasis noted on CT above Surgery consulted CAD s/p AVR, PCI x1 [place], pacermaker - Denies ever being on lasix. Denies hx CHF - Reports he has a pacemaker BNP elevated High sensitive troponin 76.3, 2-hour repeat ordered at time of consultation Denies Hx of diabetes COVID-positive Patient reportedly COVID-positive 3 weeks ago, no respiratory symptoms COVID-positive on admission Denies respiratory symptoms, but is hypoxic on admission. CXR without consolidations consistent with lobar pneumonia, no diffuse findings suspicious for viral pneumonia Due to underlying hypoxia will continue on dexamethasone 6 mg daily. Remdesivir deferred due to underlying renal and hepatic abnormalities Per list left with : Home medications include aspirin, losartan, simvastatin, tamsulosin, metoprolol, Farxiga, mycophenolate, tacrolimus. Pending outside office reconciliation (2) Cirrhosis: (3) Acute cholecystitis: (4) Renal transplant recipient: (5) ABDIRASHID (acute kidney injury): (6) COVID: (7) HTN (hypertension): (8) HLD (hyperlipidemia): (9) S/P AVR: (10) History of permanent cardiac pacemaker placement: (11) CAD S/P percutaneous coronary angioplasty: History of Present Illness Primary Care Provider: NO PCP Limited historian cough 2 days ago resolved. Fevers, chills, night sweats 3 days ago. No night sweats last night No abdominal pain. Endorses abdominal pain in LLQ and sometimes right side, has not noticed worsening factors 'just bert hurts sometimes.' No back pain No dysuria. No polyuria Endorses a history of 'a strange genetic liver condition. I'm not sure the name. Maybe cirrhosis, I'm not sure.' +etoh 2-3 days. 1 per sitting. Has taken 1 tablet of tylenol once or twice a day for the last 3 days. Does not take NSAIDs due to transplant Has been taking medicines, provides Oriented to state. Oriented to November 2022. No bloody black or samir/white colored BMs Medical History: Reviewed Medications: Reviewed Surgical History: Reviewed Family history: Reviewed Allergies: Reviewed Social History: Denies tobacco use. Occasional Etoh as noted. Code Status: Full Code Per written med list left with pt meds are: simvastatin, calcitriol, inversus (tacrolimus), tamsulosin, metoprolol, Farxiga, mycophenolate. Additional medication unclear (?vallacastin?). Pending outside reconciliation, [place] from [place] and has been unavailable by phone Home Medications Medication Instructions Recorded Confirmed Type aspirin 81 mg tablet,delayed 81 mg PO DAILY 11/20/22 11/20/22 History release calcitriol 0.25 mcg capsule 0.25 mcg PO DIRECTED 11/20/22 11/20/22 History dapagliflozin propanediol 10 mg 10 mg PO DAILY 11/20/22 11/20/22 History tablet (Farxiga) losartan 50 mg tablet 50 mg PO DAILY 11/20/22 11/20/22 History metoprolol succinate 25 mg 25 mg PO HS 11/20/22 11/20/22 History tablet,extended release 24 hr multivitamin 1 tab PO DAILY 11/20/22 11/20/22 History mycophenolate mofetil 250 mg 250 mg PO BID 11/20/22 11/20/22 History capsule (CellCept) prednisone 5 mg tablet 5 mg PO DAILY 11/20/22 11/20/22 History simvastatin 20 mg tablet 20 mg PO DAILY 11/20/22 11/20/22 History tacrolimus 1 mg capsule, 1 mg PO BID 11/20/22 11/20/22 History immediate-release tamsulosin 0.4 mg capsule 0.4 mg PO DAILY 11/20/22 11/20/22 History Past Med/Surg History Medical History (Updated 11/20/22 @ 17:13 by Hi Vidal MD) Cirrhosis Surgical History (Updated 11/20/22 @ 17:13 by Hi Vidal MD) History of permanent cardiac pacemaker placement Renal transplant recipient Social History Smoking Status: Unknown if ever smoked Feels Safe at Home: Yes Physical Exam Physical Exam: General: A&Ox3, initially not oriented to year but reoriented when prompted easily. NAD. Cooperative. HEENT: Atraumatic, normocephalic. Vision/hearing grossly intact Pulm: CTAB A&P. -wheezes, -rales, -rhonchi. Symmetrical chest rise. No increased work of breathing. No respiratory distress. Cardiac: Regular, tachycardic, +sm. Radial pulses intact and symmetrical. Abdominal: Nontender, nondistended, soft. BS present. Ext: R healing anterior velasquez laceration, no warmth/erythema. No swelling/edema. Results & Data Results & Data Vital Signs (Past 12 Hours) Vital Signs Temp Pulse Resp BP Pulse Ox O2 Del Method O2 Flow Rate 11/20/22 16:31 38.1 C H 11/20/22 16:00 94 H 39 H 95 11/20/22 15:50 97 H 36 H 96 Nasal Cannula 3 11/20/22 15:45 127/59 L 11/20/22 15:45 97 H 34 H 94 11/20/22 15:40 106 H 36 H 11/20/22 15:30 108 H 36 H 11/20/22 15:30 135/72 11/20/22 15:20 107 H 28 H 95 11/20/22 15:10 107 H 38 H 11/20/22 15:00 106 H 31 H 96 11/20/22 15:00 129/75 11/20/22 14:59 139/68 11/20/22 14:59 97 H 28 H 96 11/20/22 15:52 38.6 C H 11/20/22 14:50 103 H 15 95 Nasal Cannula 3 11/20/22 14:40 103 H 14 89 L Room Air 11/20/22 14:30 102 H 37 H 99 11/20/22 14:20 100 H 23 91 11/20/22 14:10 102 H 34 H 92 11/20/22 14:05 103 H 39 H 92 Room Air 11/20/22 14:04 145/78 H 08/18/23 14:08 93 Room Air 0 11/20/22 13:43 38.9 C H 102 H 29 H 145/78 H 93 Room Air 11/20/22 14:13 103 H PG Care Time/CCT Total # of Minutes Spent Total Time Spent with Patient: Total time spent is greater than 50% in coordination of care (as documented) at patient's floor/unit and/or counseling patient: Coding Level of Care Code 70937 INT INP/OBS CARE 3/75MIN Diagnoses Sepsis A41.9 Cirrhosis K74.60 Acute cholecystitis K81.0 Renal transplant recipient Z94.0 ABDIRASHID (acute kidney injury) N17.9 COVID U07.1 HTN (hypertension) I10 HLD (hyperlipidemia) E78.5 S/P AVR Z95.2 History of permanent cardiac pacemaker placement Z95.0 CAD S/P percutaneous coronary angioplasty I25.10; Z98.61
[2022-11-20] MEDS ORDERED: ACETAMINOPHEN 500 MG TAB PO PRN (18:41)
[2022-11-20] MEDS ORDERED: VANCOMYCIN CONSULT ACTIVE PRN (18:41)
[2022-11-20] MEDS ORDERED: Patient's ALLERGY Info needs ENTERED STA (18:47)
[2022-11-20 19:13] LABS: Lyme Ab IgG w/WB Rflx Negative (Negative)
[2022-11-20 19:16] LABS: Lyme Ab IgM w/WB Rflx Negative (Negative)
[2022-11-20] MEDS ORDERED: VANCOMYCIN HCL 2,000 MG in SODIUM CHLORIDE 0.9% 500 ML IV ONE (19:30)
[2022-11-20] MEDS: MAGNESIUM OXIDE 400 MG TAB PO SCH (20:35)
[2022-11-20] MEDS: METOPROLOL SUCC 25MG EXT REL TAB PO SCH (20:35)
[2022-11-20] MEDS: MYCOPHENOLATE MOFETIL 250 MG CAP PO SCH (20:35)
[2022-11-20] MEDS: TACROLIMUS 1 MG CAP PO SCH (20:35)
[2022-11-21 01:11] LABS: A calco-baum cmplx NotReported Not Detected (NotDetected); Bact fragilis Not Reported Not Detected (NotDetected); C auris Not Reported Not Detected (NotDetected); CTX-M Resistant Gene Not Detected (NotDetected); Calbicans Not Reported Not Detected (NotDetected); Candida glabrata Not Reported Not Detected (NotDetected); Candida krusei Not Reported Not Detected (NotDetected); Cneoformans/gatti Not Reported Not Detected (NotDetected); Cparapsilosis Not Reported Not Detected (NotDetected); Ctropicalis Not Reported Not Detected (NotDetected); E cloacae compx Not Reported Not Detected (NotDetected); Efaecalis Not Reported Not Detected (NotDetected); Efaecium Not Reported Not Detected (NotDetected); Enterobacterales DETECTED (NotDetected); Enterobacterales Not Reported DETECTED (NotDetected); Escherichia coli Not Reported DETECTED (NotDetected); H influenzae Not Reported Not Detected (NotDetected); IMP Resistant Gene Not Detected (NotDetected); K aerogenes Not Reported Not Detected (NotDetected); KPC Resistant Gene Not Detected (NotDetected); Koxytoca Not Reported Not Detected (NotDetected); Kpneumoniae grp Not Reported Not Detected (NotDetected); Lmonocyt Not Reported Not Detected (NotDetected); N meningitidis Not Reported Not Detected (NotDetected); NDM Resistant Gene Not Detected (NotDetected); OXA 48 Like Resistant Gene Not Detected (NotDetected); P aeruginosa Not Reported Not Detected (NotDetected); Proteus spp Not Reported Not Detected (NotDetected); Salmonella spp Not Reported Not Detected (NotDetected); Smarcescens Not Reported Not Detected (NotDetected); Staph lugdunensis Not Reported Not Detected (NotDetected); Staph spp. Not Reported Not Detected (NotDetected); Staphaureus Not Reported Not Detected (NotDetected); Staphepi Not Reported Not Detected (NotDetected); Stenmaltophilia Not Reported Not Detected (NotDetected); Strep agal(GrpB) Not Reported Not Detected (NotDetected); Strep pneum Not Reported Not Detected (NotDetected); Strep pyog (GrpA) Not Reported Not Detected (NotDetected); Strep spp Not Reported Not Detected (NotDetected); VIM Resistant Gene Not Detected (NotDetected); mcr-1 Colistin Resistant Gene Not Detected (NotDetected)
[2022-11-21 01:47] LABS: Base Excess VBG -8.2 mEq/L; HCO3 VBG 18 mmol/L; Oxygen Saturation VBG 87.7 %; PCO2 VBG 38 mmHg (38-50); PO2 VBG 57 mmHg; pH VBG 7.28 (7.36-7.41)
[2022-11-21] MEDS: CEFEPIME 2,000 MG in SYRINGE 0 ML IV SCH ×2 (03:44→14:00)
[2022-11-21 07:46] LABS: Basophils # (auto) 0.02 K/uL (0-0.2); Basophils % (auto) 0.2 %; Hematocrit (blood only) 43.7 % (42.0-52.0); Hemoglobin 14.6 g/dl (14.0-18.0); Immature Granulocytes # (auto) 0.13 K/uL (0.01-0.20); Lymphocytes # (auto) 1.03 K/uL (1.2-3.4); Lymphocytes % (auto) 7.8 %; Mean Corpuscular Hemoglobin 30.9 pg (25.0-34.0); Mean Corpuscular Hgb Conc 33.4 g/dL (32.0-36.0); Mean Corpuscular Volume 92.6 fL (80.0-100.0); Mean Platelet Volume 10.5 fL (9.4-12.4); Monocytes # (auto) 1.08 K/uL (0.11-0.59); Monocytes % (auto) 8.2 %; Neutrophils # (auto) 10.94 K/uL (1.40-6.50); Neutrophils % (auto) 82.8 %; Platelet Count 60 K/uL (130-400); RDW Coefficient of Variation 13.9 % (11.5-14.5); RDW Standard Deviation 46.9 fL (36.4-46.3); Red Blood Count 4.72 M/uL (4.70-6.10)
[2022-11-21] MEDS ORDERED: VANCOMYCIN HCL 1,000 MG in SODIUM CHLORIDE 0.9% 250 ML IV SCH (08:00)
[2022-11-21] MEDS ORDERED: LACTATED RINGER'S 1,000 ML IV SCH (08:00)
[2022-11-21 08:06] LABS: Albumin Globulin Ratio 1.5 (0.9-2); Albumin Level 3.6 gm/dl (3.4-5.0); BUN Creatinine Ratio 19.3 (10-20); Bilirubin,Total 2.9 mg/dl (0.2-1.0); Calcium 9.4 mg/dl (8.6-10.3); Creatinine Clr Calc Pharmacy 39.8 ml/min; Est GFR (Non-African American) 31.1 ml/min; Globulin 2.4 gm/dl (2.5-4.0); Magnesium 1.8 mg/dl (1.7-2.4); Phosphorus 4.1 mg/dl (2.5-4.9); Potassium 5.8 mmol/L (3.5-5.1)
[2022-11-21] MEDS ORDERED: dexAMETHasone 6 MG in SYRINGE 0 ML IV SCH (08:15)
[2022-11-21] MEDS: MYCOPHENOLATE MOFETIL 250 MG CAP PO SCH ×2 (08:18→20:28)
[2022-11-21] MEDS: MAGNESIUM OXIDE 400 MG TAB PO SCH (08:18)
[2022-11-21] MEDS ORDERED: PATIROMER CALCIUM SORBITEX 8.4 GM PACK PO STA (08:18)
[2022-11-21] MEDS: TACROLIMUS 1 MG CAP PO SCH ×2 (08:18→20:28)
[2022-11-21] MEDS ORDERED: SODIUM BICARBONATE 8.4% 100 MEQ in WATER, STERILE 1,000 ML IV SCH (08:30)
[2022-11-21] MEDS: metroNIDAZOLE 500 MG/100 ML BAG IV SCH ×2 (08:40→16:56)
[2022-11-21] MEDS ORDERED: TAMSULOSIN HCL 0.4 MG CAP PO SCH (09:00)
[2022-11-21] MEDS ORDERED: ASPIRIN 81 MG ECTAB PO SCH (09:00)
--- NOTE | 2022-11-21 09:02 | Ultrasound Report ---
ABDOMINAL ULTRASOUND, RIGHT UPPER QUADRANT HISTORY: Acute right upper quadrant abdominal pain ?cholecystitis, e.coli bacteremia. COMPARISON: CT 11/20/2022 FINDINGS: Limited exam secondary to patient body habitus. Pancreas: The pancreas demonstrates a normal echotexture. Liver: Cirrhotic and heterogeneous measuring up to 16 cm in length. No hepatic mass identified. Incre ased echogenicity compatible with hepatic steatosis/fibrosis. Gallbladder: Mobile layering gallstones. The bladder wall thickening measuring up to 4 mm with trace pericholecystic edema. Phrygian cap of the gallbladder with probable adenomyomatosis. Sonographic Mur phy's sign reported as negative. CBD: 0.6 Right kidney: Atrophic right kidney with 5 cm cyst. IMPRESSION: 1. Cirrhotic liver without hepatic mass identified. 2. Cholelithiasis with gallbladder wall thickening and pericholecystic edema. The sonographic Schultz sign was reported as negative. Findings are equivocal for acute cholecystitis and further evaluation with nuclear medicine hepatobiliary scan may be considered. 3. No biliary ductal dilation. ACT 112: Negative or not required by law. Electronically signed by: Mahesh Kovacs M.D. 11/21/2022 9:00 AM
--- NOTE | 2022-11-21 11:48 | Pharmacy Report ---
Pharmacy PK ABX Note - Date of Service November 21, 2022 - Assessment and Plan Assessment 72 year old M receiving Vancomycin and Cefepime for treatment of sepsis. * Day #1 of antimicrobial therapy. * History of immunosuppression on prednisone/mycophenolate/tacrolimus for previous kidney transplant. Presents with several days of fever/chills/night sweats. * Febrile upon presentation. Lactate 2.1. Procal 14.3. SCr 1.95, up to 2.07 today (unknown baseline). Leukocytosis of 13k today. COVID positive. * CT A/P suspicious for acute cholecystitis, per provider note surgery stated patient is not a good surgical candidate. * UA does not appear infected. Urine cx pending. Blood cultures growing GNB which BCID identified as E. coli without resistance genes. Vancomycin is on hold right now per provider. Plan Vancomycin * Loading dose: 2000 mg IV x 1 * Maintenance dose: 1000 mg IV every 24 hours (on hold) * Regimen is predicted to achieve target AUC/CORKY of 400-600 mg/L.hr * No level will be ordered at this time. Cefepime * 2 g IV every 12 hours - appropriate per renal fxn Pharmacy will continue to follow and will adjust dose/frequency as necessary. Thank you. Pharmacy has transitioned to AUC monitoring for vancomycin. AUC/CORKY is the preferred PK/PD target and is associated with decreased risk of nephrotoxicity compared to traditional trough targets.
--- NOTE | 2022-11-21 12:31 | XCELERA ---
[id number] \\[id number]
[2022-11-21 13:08] LABS: BUN Creatinine Ratio 22.4 (10-20); Calcium 9.6 mg/dl (8.6-10.3); Creatinine Clr Calc Pharmacy 47.4 ml/min; Est GFR (African American) 44.4 ml/min; Est GFR (Non-African American) 38.3 ml/min; Potassium 5.1 mmol/L (3.5-5.1)
[2022-11-21] MEDS: ALBUT/IPRATROP 3MG/0.5MG NEB 3 ML VIAL NEB SCH ×3 (13:36→19:49)
--- NOTE | 2022-11-21 15:14 | Discharge Summary ---
Date of Service November 21, 2022 Admission HPI Per Admitting Provider Limited historian cough 2 days ago resolved. Fevers, chills, night sweats 3 days ago. No night sweats last night No abdominal pain. Endorses abdominal pain in LLQ and sometimes right side, has not noticed worsening factors 'just bert hurts sometimes.' No back pain No dysuria. No polyuria Endorses a history of 'a strange genetic liver condition. I'm not sure the name. Maybe cirrhosis, I'm not sure.' +etoh 2-3 days. 1 per sitting. Has taken 1 tablet of tylenol once or twice a day for the last 3 days. Does not take NSAIDs due to transplant Has been taking medicines, provides Oriented to state. Oriented to November 2022. No bloody black or samir/white colored BMs Medical History: Reviewed Medications: Reviewed Surgical History: Reviewed Family history: Reviewed Allergies: Reviewed Social History: Denies tobacco use. Occasional Etoh as noted. Code Status: Full Code Per written med list left with pt meds are: simvastatin, calcitriol, inversus (tacrolimus), tamsulosin, metoprolol, Farxiga, mycophenolate. Additional medication unclear (?vallacastin?). Pending outside reconciliation, [place] and [place] been [place] by phone Discharge Data Allergies Allergy/AdvReac Type Severity Reaction Status Date / Time No Known Allergies Allergy Unverified 11/20/22 19:17 Consultations 11/20/22 18:53 ED Decision to Admit Stat 11/21/22 14:50 Burn CD for patient Stat Ordered Studies 11/20/22 15:42 CT abd pelvis wo con Stat 11/21/22 07:53 US gallbladder Stat Hospital Course (1) Sepsis: (2) Cirrhosis: (3) Acute cholecystitis: (4) Renal transplant recipient: (5) ABDIRASHID (acute kidney injury): (6) COVID: (7) HTN (hypertension): (8) HLD (hyperlipidemia): (9) S/P AVR: (10) History of permanent cardiac pacemaker placement: (11) CAD S/P percutaneous coronary angioplasty: Discharge Plan Discharge Items Patient Disposition: Transfer Acute Care Hospital Reason For Visit: SEPSIS Discharge Diagnosis: 1. bacteremia due to gram negative donna - e.coli on [employer]; source - acute cholecystitis vs UTI vs diverticulitis; favor gall bladder 2. COVID-19 infection with bronchitis from such; tested + about 3 weeks prior to admission 3. suspected acute cholecystitis 4. renal transplant status - uncertain baseline creatinine; transplant performed [facility] 5. mild sigmoid diverticulitis 6. cirrhosis 7. thrombocytopenia - 2nd to bacteremia +/- COVID infection +/- cirrhosis 8. acute kidney injury - peak creatinine 2; 1.7 at time of transfer 9. hyperkalemia 2nd to #8 - resolved; discharge K 5.1 10. lactate acidosis - improving 11. HTN 12. s/p AVR 13. pacemaker status Condition on Discharge: Serious Activity: As commented below Activity Comment: bedrest Non-emergency contact: Primary Care Provider Call non-emergency contact if: you have any medication questions Follow-up/Referrals: PCP,DIANE [Primary Care Provider] - Diet: Nothing by Mouth Addtl Attending Provider Instructions: Further instructions to follow after your stay at [facility]. 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 A dose lowering technique was utilized adhering to the principles of ALARA. COMPARISON STUDY: None. FINDINGS: Mild dependent changes seen at the lung bases. No pneumoperitoneum. No pneumatosis. No suspicious lytic are blastic osseous lesions. Pacemaker wires and aortic valve prosthesis are noted. There is a single mildly enlarged anterior diaphragmatic/pericardial lymph node measuring 19 x 12 mm. The right lower quadrant abdominal wall hernia containing multiple loops of small bowel in the cecum. No evidence for a bowel obstruction. Small fat-containing left inguinal hernia. Multiple small and large bowel diverticula are noted. There is minimal fat stranding adjacent to the proximal sigmoid colon with mild focal bowel wall thickening. This likely represents a mild acute diverticulitis. Normal appendix. There are few punctate calcified granulomas within the right hepatic lobe. Nodular contour to the liver consistent with cirrhosis. The spleen is enlarged measuring 15 cm in length. The adrenal glands and pancreas are unremarkable. There is thickening of the gallbladder wall with multiple punctate gallstones and mild pericholecystic inflammatory change/fluid. This is concerning for an acute cholecystitis. There are atrophic bilateral picayune kidneys containing multiple hypodense lesions. These are incompletely characterized on this noncontrast study but favor cysts. Dominant right renal lesion measures 6.4 cm. Advanced calcified plaque within the aorta and iliac arteries. No significant bladder wall thickening. The right lower quadrant renal transplant with mild perinephric fat stranding. There is a single punctate stone within the right lower quadrant renal transplant. No hydronephrosis. Mild periportal lymphadenopathy. This could be due to the cirrhosis or suspected acute cholecystitis. IMPRESSION: 1. Gallbladder wall thickening with pericholecystic inflammatory change/fluid and a few small gallstones. This is concerning for acute cholecystitis. Surgical consultation recommended. 2. Mild acute sigmoid diverticulitis. No perforation or abscess. 3. Mild perinephric edema surrounding the right lower quadrant renal transplant. A mild pyelonephritis would be the diagnosis of exclusion. Recommend correlation with urinalysis. 4. A single punctate stone within the right lower quadrant renal transplant. No hydronephrosis or ureteral stones. 5. Cirrhotic liver with splenomegaly. 6. Additional findings as described above. ACT 112: Negative or not required by law. Electronically signed by: Josh Maloney M.D. 11/20/2022 4:33 PM Dictated:11/20/22 1624 Transcribed: 11/20/22 1624 ABDOMINAL ULTRASOUND, RIGHT UPPER QUADRANT HISTORY: Acute right upper quadrant abdominal pain ?cholecystitis, e.coli bacteremia. COMPARISON: CT 11/20/2022 FINDINGS: Limited exam secondary to patient body habitus. Pancreas: The pancreas demonstrates a normal echotexture. Liver: Cirrhotic and heterogeneous measuring up to 16 cm in length. No hepatic mass identified. Increased echogenicity compatible with hepatic steatosis/fibrosis. Gallbladder: Mobile layering gallstones. The bladder wall thickening measuring up to 4 mm with trace pericholecystic edema. Phrygian cap of the gallbladder with probable adenomyomatosis. Sonographic Shcultz's sign reported as negative. CBD: 0.6 Right kidney: Atrophic right kidney with 5 cm cyst. IMPRESSION: 1. Cirrhotic liver without hepatic mass identified. 2. Cholelithiasis with gallbladder wall thickening and pericholecystic edema. The sonographic Schultz sign was reported as negative. Findings are equivocal for acute cholecystitis and further evaluation with nuclear medicine hepatobiliary scan may be considered. 3. No biliary ductal dilation. ACT 112: Negative or not required by law. Electronically signed by: Mahesh Kovacs M.D. 11/21/2022 9:00 AM Dictated:11/21/22856 Transcribed: 11/21/22856 Pending Studies at Discharge: Yes Studies:: blood/urine cx's; 07/07 blood cx's + for GNR (e.coli on [employer]) Stand-Alone Forms: My [facility] Skilled Items Patient informed of condition?: Yes DNR: No Discharge Level of Care: Other Communicable Disease: Yes Discharge Prognosis: Other Lines: Peripheral IV Urinary Catheter: No Medications and DC Order Prescriptions: Continued multivitamin [Multi-Vitamin] Tablet 1 tab PO DAILY mycophenolate mofetil [CellCept] 250 mg Capsule 250 mg PO BID prednisone 5 mg Tablet 5 mg PO DAILY metoprolol succinate 25 mg tablet extended release 24 hr 25 mg PO HS tacrolimus 1 mg Capsule 1 mg PO BID calcitriol 0.25 mcg capsule 0.25 mcg PO DIRECTED Rx Instructions: 3 times a week Held tamsulosin 0.4 mg capsule 0.4 mg PO DAILY Hold Instructions: hold due to low-normal blood pressure Farxiga 10 mg tablet 10 mg PO DAILY Hold Instructions: hold for now Discontinued losartan 50 mg tablet 50 mg PO DAILY aspirin [Aspir-81] 81 mg Tablet,Delayed Release (Dr/Ec) 81 mg PO DAILY simvastatin 20 mg tablet 20 mg PO DAILY Admission Data Admit Date/Time: 11/20/22 17:26 Attending Provider: Farzad Sawant Admit Provider: Hi Vidal Primary Care Provider: PCP,NO Other Providers: Hi Vidal Coding Diagnoses Sepsis A41.9 Cirrhosis K74.60 Acute cholecystitis K81.0 Renal transplant recipient Z94.0 ABDIRASHID (acute kidney injury) N17.9 COVID U07.1 HTN (hypertension) I10 HLD (hyperlipidemia) E78.5 S/P AVR Z95.2 History of permanent cardiac pacemaker placement Z95.0 CAD S/P percutaneous coronary angioplasty I25.10; Z98.61
[2022-11-21] MEDS ORDERED: VANCOMYCIN HCL 1,500 MG in SODIUM CHLORIDE 0.9% 500 ML IV SCH (17:30)
[2022-11-21 18:23] LABS: BUN Creatinine Ratio 24.9 (10-20); Calcium 9.4 mg/dl (8.6-10.3); Creatinine Clr Calc Pharmacy 47.6 ml/min; Est GFR (African American) 44.7 ml/min; Est GFR (Non-African American) 38.6 ml/min; Potassium 4.8 mmol/L (3.5-5.1)
[2022-11-21 19:00] LABS: Base Excess VBG -8.2 mEq/L; HCO3 VBG 18 mmol/L; Oxygen Saturation VBG 65.3 %; PCO2 VBG 38 mmHg (38-50); PO2 VBG 40 mmHg; pH VBG 7.28 (7.36-7.41)
[2022-11-21] MEDS: METOPROLOL SUCC 25MG EXT REL TAB PO SCH (20:28)
[2022-11-21] MEDS ORDERED: SIMVASTATIN 20 MG TAB PO SCH (21:00)
--- NOTE | 2022-11-23 08:43 | Electrocardiogram Report ---
Test Reason : Blood Pressure : / mmHG Vent. Rate : 102 BPM Atrial Rate : 102 BPM P-R Int : 184 ms QRS Dur : 170 ms QT Int : 380 ms P-R-T Axes : 000 -69 092 degrees QTc Int : 495 ms Atrial-sensed ventricular-paced rhythm Abnormal ECG No previous ECGs available Confirmed by Dallin Esteban ([id number]) on 11/23/2022 8:42:53 AM Referred By: REFERRED SELF Confirmed By:Dallin Esteban
[2022-11-23] MEDS ORDERED: CALCITRIOL 0.25 MCG CAPSULE PO SCH (09:00)
== END 2022-11-21 21:15 | disposition short-term general hospital (02) | DRG 871 ==
LOC: EDBD → ED 13:55 → MERGE 17:26 → SUATTDRO 17:26 → 2S 17:26
DX: K81.0 Acute cholecystitis; Z95.0 Presence of cardiac pacemaker; A41.51 Sepsis due to Escherichia coli [E. coli]; N17.9 Acute kidney failure, unspecified; Z95.2 Presence of prosthetic heart valve; U07.1 COVID-19; E87.5 Hyperkalemia; I10 Essential (primary) hypertension; Z95.5 Presence of coronary angioplasty implant and graft; Z79.82 Long term (current) use of aspirin; Z79.899 Other long term (current) drug therapy; E87.20 Acidosis, unspecified; K57.32 Diverticulitis of large intestine without perforation or abscess without bleeding; K74.60 Unspecified cirrhosis of liver; E78.5 Hyperlipidemia, unspecified; I25.10 Atherosclerotic heart disease of native coronary artery without angina pectoris; J40 Bronchitis, not specified as acute or chronic; Z79.52 Long term (current) use of systemic steroids; Z94.0 Kidney transplant status; D69.6 Thrombocytopenia, unspecified